=== PATIENT | male | born 1995 | race African-American/Black ===

== ENCOUNTER 2018-01-18 20:48 | Emergency (ER) | payer SELFPAY ==
[~2018-01-18] VITALS: Ht 167.6 cm; Wt 54.0 kg
[2018-01-19] MEDS ORDERED: KETOROLAC 30MG/ML VIAL IV STA (00:53)
[2018-01-19] MEDS ORDERED: MAGNESIUM/ALUMINUM HYDROXIDE/SIMETHICONE 30ML UDC PO STA (00:53)
[2018-01-19] MEDS ORDERED: VISCOUS LIDOCAINE 2% 15 ML UDC PO STA (00:53)
[2018-01-19 01:33] LABS: BASOPHILS % 1.2 % (0.0-2.0); CHLORIDE 104 mEq/L (98-107); EOSINOPHILS % 1.1 % (0.0-5.0); HEMATOCRIT. 43.9 % (42.0-52.0); HEMOGLOBIN. 14.8 g/dL (14.0-18.0); LYMPHOCYTES % 34.2 % (20.0-50.0); MEAN CORPUSCULAR HEMOGLOBIN 31.2 pg (28.0-32.0); MEAN CORPUSCULAR VOLUME 92.3 fL (80.0-94.0); MEAN PLATELET VOLUME 9.8 fl (7.4-10.4); MONOCYTES % 7.7 % (2.0-8.0); NEUTROPHILS % 55.8 % (40.0-76.0); PLATELET 162 x1000/uL (130-400); RED BLOOD CELL COUNT 4.75 mill/uL (4.7-6.1); RED CELL DISTRIBUTION WIDTH 12.7 % (11.6-14.6)
[2018-01-19 01:35] LABS: CLARITY URINE CLOUDY (CLEAR); COLOR URINE YELLOW (YELLOW); KETONES URINE TRACE (NEGATIVE); LEUKOCYTE ESTERASE URINE TRACE (NEGATIVE); NITRITE URINE NEGATIVE (NEGATIVE); OCCULT BLOOD URINE NEGATIVE (NEGATIVE); PROTEIN URINE NEGATIVE (NEGATIVE); SPECIFIC GRAVITY URINE 1.027 (1.005-1.030)
[2018-01-19 04:10] VITALS: BP 105/61
== END 2018-01-19 04:21 | disposition home or self-care (01) ==
LOC: ER 20:48
DX: R07.89 Other chest pain (principal); Z72.0 Tobacco use
CPT/HCPCS: 36415; 71045; 80053; 81003; 83690; 85025; 93005; 96374; 99285; J1885

== ENCOUNTER 2020-08-31 10:20 | Emergency (ER) | payer MEDICAID ==
[~2020-08-31] VITALS: Ht 167.6 cm; Wt 54.0 kg
[2020-08-31] MEDS ORDERED: IBUPROFEN 600MG TABLET PO ONE (11:00)
[2020-08-31] MEDS ORDERED: IBUP-2028 MT (11:52)
[2020-08-31 12:10] VITALS: BP 112/69
== END 2020-08-31 12:12 | disposition home or self-care (01) ==
LOC: ER 10:20
DX: M25.531 Pain in right wrist (principal); M79.641 Pain in right hand; R03.0 Elevated blood-pressure reading, without diagnosis of hypertension
CPT/HCPCS: 29125; 73110; 73130; 99284

== ENCOUNTER 2022-12-03 17:11 | Emergency (ER) | payer MEDICAID, MEDICARE ==
[~2022-12-03] VITALS: Ht 167.6 cm; Wt 53.0 kg
[~2022-12-03 17:11] MED LIST: IBUP-2028 MT
[2022-12-03 17:21] VITALS: TEMP 99.1; O2SAT 97
[2022-12-03] MEDS ORDERED: KETOROLAC 30MG/ML VIAL IM ONE (18:15)
[2022-12-03 18:22] VITALS: BP 125/66; PULSE 87; RESP 16
== END 2022-12-03 18:24 | disposition home or self-care (01) ==
LOC: ER 17:11
DX: G89.29 Other chronic pain (principal); M25.532 Pain in left wrist; J45.909 Unspecified asthma, uncomplicated
CPT/HCPCS: 96372; 99283; J1885; Z7610